=== PATIENT | male | born 1950 | race Caucasian/White ===

== ENCOUNTER 2017-03-30 07:04 | Day surgery (SDC) | payer OTHER, MEDICARE ==
[2017-03-28 12:45] VITALS: BMI 46.2
[2017-03-30] MEDS ORDERED: PROPOFOL 20 ML ONE ×2 (07:07)
[2017-03-30] MEDS ORDERED: LIDOCAINE HCL/PF 2% SDV 5ML VIAL ONE (07:07)
[2017-03-30 09:37] VITALS: BP 110/61; PULSE 78; TEMP 98.2
--- NOTE | 2017-03-31 17:00 | PATH ---
Surgical Pathology Report Patient Name: BENITA CLARK [facility]. Rec. #: [id number] /Age/Gender: 1950 (Age: 66) / M Account: [id number] Location: PENDING SALE TO [facility]-ENDOSCOPY Taken: 03/30/2017 Received: 03/30/2017 Reported: 03/31/2017 Physicians: Jesse Magaña M.D. Specimen(s) Received BX RIGHT COLON Clinical History Polyp Final Diagnosis RIGHT COLON, BIOPSY: HYPERPLASTIC POLYP. Electronically Signed Chelly Bueno M.D. Gross Description Received in formalin, labeled "right colon" is a carbone, irregular portion of soft tissue measuring 0.5 cm. in greatest dimension. The specimen is submitted in toto in one cassette. 03/30/201703/30/2017
== END 2017-03-30 09:39 | disposition home or self-care (01) ==
LOC: FASU-ENDO 07:04
PROVIDERS: ATTEND Internal Medicine Gastroenterology
PROC: 0DBK8ZX Excision of Ascending Colon, Via Natural or Artificial Opening Endoscopic, Diagnostic (ICD-10-PCS; principal; 2017-03-30 08:32)
DX: Z86.010 Personal history of colon polyps (principal); K57.30 Diverticulosis of large intestine without perforation or abscess without bleeding; K63.5 Polyp of colon
CPT/HCPCS: 88305-TC